=== PATIENT | male | born 1970 | race Two or more races ===

== ENCOUNTER 2022-06-15 09:50 | Emergency (ER) | payer OTHER ==
[~2022-06-15] VITALS: Ht 170.2 cm; Wt 236.0 kg
[2022-06-15] MEDS ORDERED: CEPH-510 PO (11:54)
[2022-06-15 11:58] VITALS: BP 118/64
== END 2022-06-15 12:01 | disposition home or self-care (01) ==
LOC: ER 09:50
DX: S80.12XA Contusion of left lower leg, initial encounter (principal); S81.832A Puncture wound without foreign body, left lower leg, initial encounter; I10 Essential (primary) hypertension; E78.5 Hyperlipidemia, unspecified; Z79.899 Other long term (current) drug therapy; W22.8XXA Striking against or struck by other objects, initial encounter; Y93.89 Activity, other specified; Y92.89 Other specified places as the place of occurrence of the external cause; Y99.8 Other external cause status
CPT/HCPCS: 73590

== ENCOUNTER 2023-05-29 22:21 | Emergency (ER) | payer MEDICAID, OTHER ==
[~2023-05-29] VITALS: Ht 170.2 cm; Wt 98.7 kg
[~2023-05-29 22:21] MED LIST: CEPH-510 PO
[2023-05-29 22:30] VITALS: BP 117/63; PULSE 75; RESP 16; TEMP 98.7; O2SAT 95
[2023-05-30 00:07] LABS: Urine Bacteria NONE SEEN /hpf (None Seen); Urine Blood 3+ /uL (Negative); Urine Clarity HAZY (Clear); Urine Color Yellow (Yellow); Urine Mucus FEW (None Seen); Urine Protein, UAD 1+ (Negative); Urine Specific Gravity 1.027 (1.001-1.035); Urine Urobilinogen Normal (Negative); Urine WBC 313 /hpf (0 - 3); Urine pH 5.5 (5.0-8.0)
[2023-05-30] MEDS ORDERED: CEPH500C PO (00:21)
== END 2023-05-30 00:30 | disposition home or self-care (01) ==
LOC: ER 22:23
DX: N39.0 Urinary tract infection, site not specified (principal); I10 Essential (primary) hypertension; Z79.899 Other long term (current) drug therapy
CPT/HCPCS: 81001

== ENCOUNTER 2023-07-07 18:25 | Emergency (ER) | payer MEDICAID ==
[~2023-07-07] VITALS: Ht 170.2 cm; Wt 101.5 kg
[~2023-07-07 18:25] MED LIST changes: +CEPH500C PO
[2023-07-07 19:56] LABS: Basophils # (auto) 0 10 ^3/uL (0-0.2); Basophils % (auto) 0.4 % (0.0-2.0); Eosinophils # (auto) 0.1 10 ^3/uL (0-0.8); Eosinophils % (auto) 1.8 % (0.0-7.0); Hematocrit 41.6 % (41.0-53.0); Hemoglobin 14.7 g/dL (13.5-17.5); Lymphocytes # (auto) 2.9 10 ^3/uL (0.4-5.4); Lymphocytes % (auto) 39.7 % (10.0-50.0); Mean Corpuscular Hemoglobin 33.9 pg (28.0-32.0); Mean Corpuscular Hgb Conc. 35.3 g/dL (32.0-36.0); Mean Corpuscular Volume 96.2 fL (80.0-100.0); Monocytes # (auto) 0.8 10 ^3/uL (0-1.3); Monocytes % (auto) 11.4 % (0.0-12.0); Neutrophils # (auto) 3.4 10 ^3/uL (1.6-8.6); Neutrophils % (auto) 46.7 % (37.0-80.0); Nucleated Red Blood Cells % 0.2 %; Red Blood Cells 4.33 10^6/uL (4.5-5.90); Red Cell Distribution Width 12.9 % (11.8-14.3); White Blood Cell 7.2 10^3/uL (4.4-10.8)
[2023-07-07 20:11] LABS: Alanine Aminotransferase 46 U/L (7-40); Albumin 4.7 g/dL (3.2-4.8); Alkaline Phosphatase 96 U/L (46-116); Anion Gap 5 (5-15); Aspartate Aminotransferase 35 U/L (13-40); Bilirubin, Total 0.4 mg/dL (0.2-1.0); Calcium 9.9 mg/dL (8.7-10.4); Carbon Dioxide 28 mmol/L (20-30); Chloride 105 mmol/L (98-107); Glucose 91 mg/dL (74-106); Potassium 4.7 mmol/L (3.5-5.1); Sodium 138 mmol/L (136-145)
[2023-07-07 20:31] LABS: BUN/Creatinine Ratio 16.8 (10.0-20.0)
[2023-07-07 20:32] LABS: Blood Urea Nitrogen 16 mg/dL (9-23)
[2023-07-07 21:14] LABS: Urine Bacteria NONE SEEN /hpf (None Seen); Urine Blood Negative /uL (Negative); Urine Clarity Clear (Clear); Urine Color Colorless (Yellow); Urine Protein, UAD Negative (Negative); Urine Specific Gravity 1.019 (1.001-1.035); Urine Urobilinogen Normal (Negative); Urine WBC 1 /hpf (0 - 3); Urine pH 5.5 (5.0-8.0)
[2023-07-07 23:10] VITALS: BP 115/62; PULSE 67; RESP 18; TEMP 97.6; O2SAT 95
== END 2023-07-07 22:35 | disposition home or self-care (01) ==
LOC: ER 18:25
DX: M79.18 Myalgia, other site (principal); R10.9 Unspecified abdominal pain; K21.9 Gastro-esophageal reflux disease without esophagitis; I10 Essential (primary) hypertension
CPT/HCPCS: 36415; 71046; 74176; 80053; 81001; 84484; 85025; 93005

== ENCOUNTER 2024-04-10 17:46 | Emergency (ER) | payer MEDICAID ==
[~2024-04-10] VITALS: Ht 170.2 cm; Wt 90.5 kg
[2024-04-10 18:25] VITALS: BP 132/81; PULSE 78; RESP 18; TEMP 98.9; O2SAT 95
[2024-04-10] MEDS: KETOROLAC TROMETH 30 MG/ML 1ML VIAL IM ONE (19:02)
== END 2024-04-10 20:11 | disposition home or self-care (01) ==
LOC: ER 17:46
DX: M25.531 Pain in right wrist (principal); K21.9 Gastro-esophageal reflux disease without esophagitis; I10 Essential (primary) hypertension; W22.8XXA Striking against or struck by other objects, initial encounter; Y93.89 Activity, other specified; Y92.89 Other specified places as the place of occurrence of the external cause; Y99.8 Other external cause status
CPT/HCPCS: 73110; 96372; 99283; J1885